=== PATIENT | male | born 1945 | race Caucasian/White ===

== ENCOUNTER 2016-09-11 11:22 | Outpatient (CLI) | payer MEDICARE, BC | END 2016-09-11 11:23 | disposition home or self-care (01) | LOC: BURLAB 11:22 | PROVIDERS: ATTEND Family Medicine | DX: Z01.812 Encounter for preprocedural laboratory examination (principal) | CPT/HCPCS: 36415; 82565 ==

== ENCOUNTER 2016-09-11 14:37 | Outpatient (CLI) | payer MEDICARE, BC ==
[2016-09-11 14:49] LABS: Blood, Urine Moderate (Negative); Protein, Urine (Dipstick) > or equal to 300 mg/dL (Neg-Trace)
[2016-09-11 15:07] LABS: Bilirubin Large (Negative)
[2016-09-11 15:08] LABS: Glucose, Urine (Dipstick) Unable to Interpret mg/dL (Negative); Ketone, Urine Unable to Interpret mg/dL (Negative); Nitrite Unable to Interpret (Negative); Urobilinogen UNABLE TO INTERPRET mg/dL (0.2-1.0)
[2016-09-11 15:09] LABS: Bacteria/HPF 3+ HPF (None Seen); Transitional Epithelial 0-3 HPF (0-3); WBC/HPF 21-50 HPF (0-3)
[2016-09-11 15:38] LABS: Squamous Epithelial 0-3 HPF (0-3)
== END 2016-09-11 14:38 ==
LOC: HPCALD 14:37
PROVIDERS: ATTEND Family Medicine
DX: R31.9 Hematuria, unspecified (principal)
CPT/HCPCS: 81001; 87086

== ENCOUNTER 2016-09-12 09:03 | Outpatient (CLI) | payer MEDICARE, BC ==
--- NOTE | 2016-09-12 17:26 | CT ---
CT ABDOMEN AND PELVIS WITH AND WITHOUT CONTRAST AND REGIONAL RECONSTRUCTIONS: Date: 09/12/[address] of the abdomen and pelvis was done initially without IV contrast to investigate hematuria and potentially rule out a renal stone. Comparison is made with the 09/07/15 CT scan done with IV co ntrast. After the initial noncontrast scan, it was felt that contrast images, both arterial and veno us phase, were necessary. Regional reconstructions were then done in the coronal planes on those two sets of images. FINDINGS: The lung bases are clear. The liver, spleen, pancreas, and abdominal aorta showed no acute findings. The left adrenal gland wa s rather nodular. It measured about 2.[address] density varied from around -4 CT units on the noncontrast study to +13 on the arterial phase images and +40 on the venous phase images. The f inding is still more likely benign than not. A minimal hiatal hernia is present. Attention is drawn to the kidneys, where there are multiple renal cysts of varying sizes. The noncon trast study shows some are hyperdense suggesting hemorrhagic cysts. One of concern is located in the lower left kidney. It measures about 3.6 cm in maximal diameter. It seems to have some vague increa sed density in it on the noncontrast study. Its CT numbers on the venous phase images were about 52. This same cyst was shown to have some debris on an older ultrasound and has grown in size since marcos t ultrasound. Thus, it does not meet all criteria for a pure simple cyst. There is no hydronephrosis . The bowel is nondistended. There is no sign of inflammatory change around bowel or wall thickening. CT of the pelvis was remarkable for a tremendously enlarged prostate gland that measures over 6.0 cm in diameter and is very inhomogeneous in its uptake of contrast. No pelvic masses or adenopathy wer e seen otherwise. The urinary bladder wall is concentrically thickened, possibly due to chronic outf low obstruction IMPRESSION: 1. Multiple bilateral renal cysts without signs of renal obstruction. The largest cyst on the right is about 2.4 cm in the mid to upper part of that kidney. The largest on the left is located inferio rly and measures at least 3.6 cm in diameter. 2. The large inferior pole cyst of the left kidney has some increased density on the noncontrast st udy and shows some slight enhancement postcontrast. Because of this, it does not meet the criteria f or a simple cyst. A follow-up ultrasound could be useful to compare with the older ultrasound to see if it has changed much internally and if there is more than just merely debris. I would strongly co nsider referring the patient to a urologist to decide if there are any next steps to be taken with t his finding. Additionally, the size of the patient's prostate is quite large, for which a urologist might be helpful. 3. Marked prostatic enlargement. POS: HOME
== END 2016-09-12 09:04 | disposition home or self-care (01) ==
LOC: BURCT 09:03
PROVIDERS: ATTEND Family Medicine
DX: R31.9 Hematuria, unspecified (principal); N28.1 Cyst of kidney, acquired; N40.0 Benign prostatic hyperplasia without lower urinary tract symptoms
CPT/HCPCS: 74178

== ENCOUNTER 2017-04-14 18:24 | Emergency (ER) | payer MEDICARE, BC ==
[2017-04-14 19:05] LABS: #Basophils 0.1 thou/uL (0.0-0.2); #Lymphocytes 0.9 thou/uL (1.20-3.40); #Monocytes 0.9 thou/uL (0.11-0.59); #Neutrophils 13.3 thou/uL (1.40-6.50); %Basophils 0.3 % (0.0-1.0); %Lymphocytes 5.8 % (21.0-51.0); %Monocytes 5.7 % (0.0-10.0); %Neutrophils 88.1 % (42.0-75.0); Hemoglobin 15.1 g/dL (14.0-18.0); Mean Corpuscular HGB CONC 35.4 g/dL (32.0-36.0); Mean Corpuscular Hemoglobin 33.2 pg (27.0-31.0); Mean Corpuscular Volume 93.8 fl (80.0-94.0); Mean Platelet Volume 6.7 fL (7.4-10.4); Platelet Count 226 thou/uL (130-400); RBC Distribution Width 12.2 % (11.5-14.5); Red Blood Cell (RBC) Count 4.56 mill/uL (4.70-6.10); White Blood Cell (WBC) Count 15.1 thou/uL (4.8-10.8)
[2017-04-14 19:16] LABS: CKMB 2.2 ng/mL (0-6.6); Troponin I 0.026 ng/mL (< 0.028)
[2017-04-14 19:18] LABS: ALT (SGPT) 16 U/L (8-55); AST (SGOT) 13 U/L (5-34); Albumin 3.5 g/dL (3.4-4.8); Alkaline Phosphatase 70 U/L (40-150); Anion Gap 20 mmol/L (10-20); BUN (Urea Nitrogen) 29 mg/dL (8.4-25.7); Bilirubin, Total 0.5 mg/dL (0.2-1.2); Calc. Creatinine Clearance 0 mL/min (70-130); Calcium 9.1 mg/dL (7.8-10.44); Carbon Dioxide 16 mmol/L (23-31); Chloride 99 mmol/L (98-107); Estimated GFR-MDRD 29; Globulin 3.5 g/dL (2.4-3.5); Glucose 276 mg/dL (80-115); Potassium 3.8 mmol/L (3.5-5.1); Sodium 131 mmol/L (136-145)
[2017-04-14] MEDS ORDERED: cefTRIAXone\\ROCEPHIN 2 GM VIAL ONE (19:18)
[2017-04-14] MEDS ORDERED: Sodium Chloride 0.9% 100 ML ONE (19:18)
[2017-04-14 19:24] LABS: Bilirubin Negative (Negative); Blood, Urine Large (Negative); Glucose, Urine (Dipstick) 250 mg/dL (Negative); Leukocyte Large (Negative); Nitrite Negative (Negative); Protein, Urine (Dipstick) > or equal to 300 mg/dL (Neg-Trace)
[2017-04-14 19:29] LABS: Clarity Cloudy (Clear)
[2017-04-14 19:30] LABS: Bacteria/HPF 2+ HPF (None Seen); Other Microscopic Description C&S SET UP; Squamous Epithelial 0-3 HPF (0-3); WBC/HPF 21-50 HPF (0-3)
[2017-04-14] MEDS ORDERED: Ketorolac Tromethamine 30 MG/ML VIAL ONE (19:56)
[2017-04-14] MEDS ORDERED: Acetaminophen 325 MG TAB ONE (19:58)
--- NOTE | 2017-04-14 20:25 | RAD ---
PORTABLE CHEST: Date: 04-14-17 An AP portable film at 1844 is compared with a 01-30-13 study. FINDINGS: The heart is normal in size and the lungs are clear. No infiltrate or effusion was seen. There is no vascular congestion or edema. The bony structures appear intact. No mediastinal abnormality was see n. IMPRESSION: No acute thoracic finding. POS: HOME
== END 2017-04-14 20:23 | disposition home or self-care (01) ==
LOC: BURERS 18:24
DX: A41.9 Sepsis, unspecified organism (principal); R65.20 Severe sepsis without septic shock; N17.9 Acute kidney failure, unspecified; I25.2 Old myocardial infarction; E11.9 Type 2 diabetes mellitus without complications; I12.9 Hypertensive chronic kidney disease with stage 1 through stage 4 chronic kidney disease, or unspecified chronic kidney disease; N18.9 Chronic kidney disease, unspecified; E78.5 Hyperlipidemia, unspecified; Z79.02 Long term (current) use of antithrombotics/antiplatelets; Z79.82 Long term (current) use of aspirin; Z79.899 Other long term (current) drug therapy; Z79.84 Long term (current) use of oral hypoglycemic drugs
CPT/HCPCS: 36415; 71010; 80053; 81003; 81015; 82553; 83605; 84484; 85025; 87040; 87077; 87086; 87149; 87186; 93005; 96361; 96365; J0696; J1885; J7050

== ENCOUNTER 2017-04-29 10:11 | Outpatient (CLI) | payer MEDICARE, BC ==
[2017-04-29 11:50] LABS: Hemoglobin A1c 7.7 % (4.0-6.0)
== END 2017-04-29 10:12 | disposition home or self-care (01) ==
LOC: HPCALD 10:11
PROVIDERS: ATTEND Family Medicine
DX: E11.9 Type 2 diabetes mellitus without complications (principal); R97.20 Elevated prostate specific antigen [PSA]
CPT/HCPCS: 36415; 83036; 84153